=== PATIENT | female | born 1985 | race Caucasian/White ===

== ENCOUNTER 2019-05-10 18:49 | Emergency (ER) | payer MEDICAID ==
[~2019-05-10] VITALS: Ht 165.1 cm; Wt 79.5 kg
[~2019-05-10 18:49] MED LIST: ACET500C5 PO
[2019-05-10 18:53] VITALS: BP 124/68; PULSE 84; RESP 20; Ht 165.1 cm; Wt 79.5 kg
[2019-05-10] MEDS ORDERED: DEXAMETHASONE 10 MG/ML 1 ML INJ PO ONE (20:00)
[2019-05-10] MEDS ORDERED: IBUPROFEN 600 MG TAB PO ONE (20:00)
[2019-05-10] MEDS ORDERED: ACETAMINOPHEN 500 MG TAB PO STA (21:28)
== END 2019-05-10 22:03 | disposition home or self-care (01) ==
LOC: FTE 18:49
DX: O26.891 Other specified pregnancy related conditions, first trimester (principal); R10.2 Pelvic and perineal pain; M54.5 Low back pain; O99.89 Other specified diseases and conditions complicating pregnancy, childbirth and the puerperium; Z3A.13 13 weeks gestation of pregnancy
CPT/HCPCS: 76775; 76805; 80048; 81001; 81025; 84702; 85025; 85610; 85730; 86900; 86901; Z7502; 81003; J1100